=== PATIENT | female | born 1965 | race Caucasian/White ===

== ENCOUNTER 2017-01-03 17:28 | Emergency (ER) | payer OTHER ==
[2017-01-03 18:06] VITALS: RESP 16; TEMP 98.7
[2017-01-03 18:19] LABS: BASOPHILS # (AUTO) 0.14 10*3/UL; BASOPHILS % (AUTO) 1.5 % (0-1); EOSINOPHILS % (AUTO) 2.2 % (0-8); HEMATOCRIT 43.4 % (37.0-47.0); HEMOGLOBIN 14.8 g/dL (12.0-16.0); LYMPHOCYTES # (AUTO) 3.03 10*3/uL; MEAN CORPUSCULAR HGB CONC 34.1 g/dL (33-37); MEAN PLATELET VOLUME 11.8 FL (7.4-12.2); MONOCYTES # (AUTO) 0.94 10*3/UL (0.3-0.8); MONOCYTES % (AUTO) 10.4 % (5-15); NEUTROPHILS # (AUTO) 4.74 10*3/UL; NEUTROPHILS % (AUTO) 52.4 % (50-80); PLATELET MORPHOLOGY COMMENT NORMAL MORPHOLOGY (NORM); RBC MORPHOLOGY COMMENT NORMAL MORPHOLOGY (NORM); RED BLOOD COUNT 4.77 10^6/uL (4.20-5.40); WBC MORPHOLOGY COMMENT NORMAL MORPHOLOGY (NORM)
[2017-01-03 18:25] LABS: BLOOD UREA NITROGEN 19 mg/dL (7-22); BUN/CREATININE RATIO 21.11 (6-20); CALCIUM 8.5 mg/dL (8.7-10.7); EST GLOMERULAR FILTRATION > 60 (>60 ml/min/1.73m(2)); SERUM ALBUMIN 3.8 g/dL (3.5-4.8)
[2017-01-03] MEDS ORDERED: LevETIRAcetam Tab 500 MG TABLET PO ONE (18:56)
--- NOTE | 2017-01-03 19:01 | PDOC ---
Seizure HPI - General Chief Complaint: Neurological Complaints Stated Complaint: Seizure Date Seen by Provider: 01/03/17 Time Seen by Provider: 17:45 Source: POSITIVE: Patient, Police, Old records Exam Limitations: POSITIVE: No limitations Nurse's Notes Reviewed & Considered: Yes EMS Report Reviewed & Considered: Verbal - History of Present Illness Initial Comments: The patient is a 51-year-old female who is brought to the emergency room from the residential by EMS. Patient is an inmate at the [facility]. 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 The attending officer who accompanies the patient states that he did not witness the seizure, but her fellow inmates reported that she had a period of tonic-clonic activity followed by "confusion" for about 15 minutes afterwards. Upon presentation to the emergency room the patient is alert and oriented and asymptomatic except for "feeling tired ". Patient has a 4 year history of a seizure disorder and is under the care of a neurologist, whom she last saw one month ago. She is presently on Keppra, 250 mg in the morning and 750 mg at night. Patient had no tongue biting and no loss of continence of bowel or bladder. No fevers or chills. No recent head trauma. No focal sensory or motor symptoms. Body Location Affected: REPORTS: Other (Seizure as above) Timing: REPORTS: Abrupt Duration: Other (Seizure lasted probably less than 2 minutes) Severity: Moderate Quality: REPORTS: Other (Patient denies any pain anywhere) Seizure Began at (time): 17:00 Most Recent Seizure Episode: 01/03/17 Witnessed Seizure?: Yes (inmates at the residential) Preceding Symptoms/Context (specify in comments): REPORTS: None Character of Seizure(s): REPORTS: Unknown Unresponsiveness, Gen. "Shaking all Over" Post-ictal Symptoms: REPORTS: Other ("Confusion") Recently seen/treated/hospitalized: Yes Any Prior Injuries Related to Current Complaint?: No - Patient Home Medications Home Medications: Home Medications Levetiracetam [Keppra] 1 tab PO QD #30 tab 12/14/16 Levetiracetam [Keppra] 1 tab PO QHS #30 tab 12/14/16 Hydrochlorothiazide 1 cap PO DAILY #30 cap 12/15/16 Acetaminophen [Tylenol] 2 tab PO Q8-10H PRN #90 tab 12/23/16 - Patient Allergies Allergies/Adverse Reactions: Allergies Allergy/AdvReac Type Severity Reaction Status Date / Time aspirin Allergy Severe CHEST PAIN Verified 01/03/17 17:50 OR TIGHTNESS Past Medical History - heen HEENT History: Denies History Cardiovascular History: Hypertension, CAD Respiratory History: Denies History Gastrointestinal History: Denies History Genitourinary History: Denies History Endocrine History: Hyperthyroidism Musculoskeletal History: Denies History Neurological History: Seizures Blood Disorders: Denies History Psychiatric History: Depression, PTSD History of Sexually Transmitted Diseases: No Female Reproductive History: Denies History Obstetrical History: Denies History Cancer History: Denies History In Past Year Been Physically Harmed or Verbally Threatened: No History of MDRO: No History of Other Communicable Diseases: No Tobacco Use: Current Every Day Smoker Alcohol Use: None Substance Use Type: None Previous Surgical History: Yes Type / Date of Surgery: APPY/CHOLECYSTECTOMY/ Significant Family History: No pertinent family hx Past Medical History Reviewed: Reviewed - No Changes ROS - Limitations ROS Limitations: No Limitations Constitution: REPORTS: Denies Symptoms Cardiovascular: REPORTS: Denies Cardiac Symptoms Respiratory: REPORTS: Denies Resp Symptoms Neurological: REPORTS: Denies Neuro Symptoms, Other (Seizure as above) Gastrointestinal: REPORTS: Denies GI Symptoms Endocrine: REPORTS: Denies Symptoms Musculoskeletal: REPORTS: Denies MS Symptoms Genitourinary: REPORTS: Denies Symptoms Eyes: REPORTS: Denies Symptoms ENT: REPORTS: Denies Symptoms Skin: REPORTS: Denies Skin Symptoms Lympathic: REPORTS: Denies Lympathic Symptoms Immunologic: POSITIVE: Denies Symptoms Psychiatric: POSITIVE: Denies Psych Symptoms Seizure Exam - General Appearance General Appearance: POSITIVE: No Acute Distress, Alert - HEENT HEENT: POSITIVE: Head Inspection Nml, Eyes Inspection Nml, Ears Inspection Nml, Nose Inspection Nml, Oral/Dental Inspect. Nml, Pharynx Inspect. Nml, PERRL, EOMI - Pupil Size Pupil Size: 4 mm: Bilateral (PERRLA) - Neck Neck: POSITIVE: Non Tender, Neck Supple, Trachea Midline, Nexus Criteria Negative - Respiratory Respiratory: POSITIVE: Chest Non Tender, No Ecchymosis, Breath Sounds Normal, No Respiratory Distress - Cardiovascular Cardiovascular: POSITIVE: Regular Rate and Rhythm, Heart Sounds Normal, Equal Pulses, Strong Pulses, No Murmur, No Gallop, No JVD, No Pulse Deficit Peripheral Pulses: Radial (R): 2+, Radial (L): 2+ - Abdomen Abdomen: Soft: (All Quadrants), Normal Bowel Sounds: (All Quadrants), Denies Tenderness: (All Quadrants), No Splenomegaly: (All Quadrants), No Hepatomegaly: (All Quadrants), No Guarding: (All Quadrants), No Rebound: (All Quadrants), No Palpable Pulse: (All Quadrants), No Palpabale Mass: (All Quadrants), No Distention: (All Quadrants), No Rigidity: (All Quadrants) - Skin Skin: POSITIVE: Intact, Normal For Race, Warm, Dry, No Rash - Extremities Extremity: Non-Tender: (All Extremities), Normal ROM: (All Extremities), Normal Inspection: (All Extremities) - Neuro / Psych Higher Functions: POSITIVE: Oriented x3, Speech Normal, Mood Appropriate, Affect Appropriate Cranial Nerves: POSITIVE: Normal As Tested, No Evidence of Acute CVA Cerebellar: POSITIVE: Normal As Tested Sensorimotor: POSITIVE: No Motor Deficits, No Sensory Deficits, Reflexes Normal , Symmetrical Seizure Progress - Results Reviewed by me Lab Results Reviewed: Yes ([facility] level pending) Lab Results:: Laboratory Results 01/03/17 Range/Units 18:11 WBC 9.06 (4.8-10.8) 10^3/uL RBC 4.77 (4.20-5.40) 10^6/uL Hgb 14.8 (12.0-16.0) g/dL Hct 43.4 (37.0-47.0) % MCV 91.0 (81-99) FL MCH 31.0 (27-31) PG MCHC 34.1 (33-37) g/dL RDW Std Deviation 42.4 (39-50) fL RDW Coeff of Ryan 13.0 (11.5-14.5) % Plt Count 251 (140-350) 10*3/uL MPV 11.8 (7.4-12.2) FL Immature Gran % (Auto) 0.1 (0-5) % Neut % (Auto) 52.4 (50-80) % Lymph % (Auto) 33.4 (10-50) % [place] % (Auto) 10.4 (5-15) % Eos % (Auto) 2.2 (0-8) % Baso % (Auto) 1.5 H (0-1) % Immature Gran # (Auto) 0.01 10*3/UL Neut # (Auto) 4.74 10*3/UL Lymph # (Auto) 3.03 10*3/uL [place] # (Auto) 0.94 H (0.3-0.8) 10*3/UL Eos # (Auto) 0.20 10*3/UL Baso # (Auto) 0.14 10*3/UL WBC Morphology Comment Normal morphology (NORM) Plt Morphology Comment Normal morphology (NORM) RBC Morph Comment Normal morphology (NORM) Sodium 136 (135-145) meq/L Potassium 3.6 L (3.8-5.2) meq/L Chloride 103 (98-112) meq/L Carbon Dioxide 25 (23-33) meq/L Anion Gap 8 (5-20) BUN 19 (7-22) mg/dL Creatinine 0.9 (0.50-1.20) mg/dL Estimated GFR > 60 (>60 ml/min/1.73m(2)) BUN/Creatinine Ratio 21.11 H (6-20) Glucose 69 L (78-110) mg/dL Calculated Osmolality 281.0 (267-292) mOsm/kg Lactic Acid 1.4 (0.70-2.10) MMOL/L Calcium 8.5 L (8.7-10.7) mg/dL Total Bilirubin 0.4 (0.3-1.2) mg/dL AST 18 (8-39) IU/L ALT 31 (9-52) IU/L Alkaline Phosphatase 59 (38-126) IU/L Total Protein 7.0 (6.1-8.0) g/dL Albumin 3.8 (3.5-4.8) g/dL Globulin 3.2 (2.50-4.10) g/dL Albumin/Globulin Ratio 1.10 L (1.3-2.0) mg/g - Patient's Progress Pain Medication Addressed: POSITIVE: Not Applicable School/Work Release Addressed: POSITIVE: Yes (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 Status: POSITIVE: Unchanged, Re-Examined - Consult Counseled: POSITIVE: Patient, RE: Lab Results, RE: DX, RE: Need for F/U Patient Care Time - Estimated PCT Patient Care Time (In Minutes): 40 Vital Signs - Recent Vital Signs Vital Signs: Vital Signs (Last 8 hours) Temp Pulse Resp BP Pulse Ox 01/03/17 17:55 98.7 F 70 16 101/70 98 - VS Reviewed Vital Signs Reviewed: Yes Discharge Clinical Impression: Seizure Discharge Disposition: Discharged to Home Condition: Stable Patient Instructions Given at Discharge: Recurrent Seizures in Adults (ED) Additional Instructions: Please take one additional Keppra tablet now. Then increase her Keppra to 1 tablet in the morning and 1-1/2 tablet in the evening. Follow-up with your neurologist. Return here anytime if condition worsens in any way whatsoever. Follow Up With: NONE,NONE [Primary Care Provider] - (Instructions as above. Follow-up with your primary care provider and neurologist. Return as necessary.)
== END 2017-01-03 19:37 | disposition home or self-care (01) ==
LOC: ER 17:28
DX: G40.909 Epilepsy, unspecified, not intractable, without status epilepticus (principal)
CPT/HCPCS: 80053; 80177; 83605; 85025; 99282